=== PATIENT | male | born 1995 | race Caucasian/White ===

== ENCOUNTER 2017-03-01 09:38 | Emergency (ER) | payer SELFPAY ==
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
[2017-03-01] MEDS ORDERED: Ketorolac 60 MG/2 ML SDV IM ONE (11:35)
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
== END 2017-03-01 11:50 | disposition home or self-care (01) ==
LOC: MW.ED 09:38
DX: S40.212A Abrasion of left shoulder, initial encounter (principal); M79.662 Pain in left lower leg; F17.210 Nicotine dependence, cigarettes, uncomplicated; X58.XXXA Exposure to other specified factors, initial encounter
CPT/HCPCS: 73030-26-LT; 73030-LT; 73590-26-LT; 73590-LT; 99282; 99284

== ENCOUNTER 2024-09-23 08:35 | Emergency (ER) | payer SELFPAY | END 2024-09-23 08:59 | disposition left against medical advice (07) | LOC: MW.ED 08:35 | DX: Z53.21 Procedure and treatment not carried out due to patient leaving prior to being seen by health care provider (principal) ==